=== PATIENT | female | born 1995 | race Caucasian/White ===

== ENCOUNTER 2017-10-13 14:57 | Emergency (ER) | payer OTHER ==
[2017-10-13 16:05] VITALS: BP 135/78
[2017-10-13] MEDS ORDERED: BSS OPTH.SOL* BTL ONE (16:06)
[2017-10-13] MEDS ORDERED: Fluorescein Sodium TOPICAL* 1 MG TEST ONE (16:06)
[2017-10-13] MEDS ORDERED: Tetracaine 0.5% OPTH.SOL 4 ML* 1 DROP BTL ONE (16:07)
--- NOTE | 2017-10-13 16:21 | UC ---
Eye Complaint HPI - HPI Summary HPI Summary: 22 y/o female presents to the urgent care c/o RT eye yellowish drainage with crusting since yesterday. Pt reports her contact lense ripped inside her RT eye yesterday. she removed it completely. She had itchiness after removal. This morning she woke up with RT eye redness and her eye was completely shut with crusting yellowish drainage. Pt denies eye pain, photophobia, FB sensation, fever, CRABTREE, visual impairment. - History of Current Complaint Chief Complaint: UCEye Stated Complaint: RIGHT EYE ISSUE Time Seen by Provider: 10/13/17 16:03 Hx Obtained From: Patient ?: No Onset/Duration: Gradual Onset, Lasting Days - yesterday, Still Present, Worse Since - this morning Timing: Constant Severity Initially: Mild Severity Currently: Mild Pain Intensity: 0 Pain Scale Used: 0-10 Numeric Location of Injury: Conjunctiva - RT conjunctiva with redness and yellowish discharge Character: Dull Aggravating Factor(s): Contact Lens Alleviating Factor(s): Nothing Associated Signs And Symptoms: Positive: Drainage (Purulent) - yellowish. Negative: Photophobia, Vision Impairment Bilateral, Fever, Swelling - Risk Factors Penetrating Injury Risk Factor: Negative Globe Rupture Risk Factors: Negative Acute Glaucoma Risk Factors: Negative Optic Artery Occlusion Risk Factors: Negative - Allergies/Home Medications Allergies/Adverse Reactions: Allergies Allergy/AdvReac Type Severity Reaction Status Date / Time No Known Allergies Allergy Verified 10/13/17 16:04 PMH/Surg Hx/FS Hx/Imm Hx Previously Healthy: Yes - Pt denies PMHX - Surgical History Surgical History: Yes Surgery Procedure, Year, and Place: T&A. ACL recon Left knee - Family History Known Family History: Positive: Hypertension, Diabetes - Social History Occupation: Student Lives: With Family Alcohol Use: Rare Substance Use Type: None Smoking Status (MU): Never Smoked Tobacco - Immunization History Vaccination Up to Date: Yes Review of Systems Constitutional: Negative Skin: Negative Eyes: Drainage - yellowish drainage, Eye Redness - RT eye ENT: Negative Respiratory: Negative Cardiovascular: Negative Gastrointestinal: Negative Genitourinary: Negative Motor: Negative Neurovascular: Negative Musculoskeletal: Negative Neurological: Negative Psychological: Negative Is Patient Immunocompromised?: No All Other Systems Reviewed And Are Negative: Yes Physical Exam Triage Information Reviewed: Yes Vital Signs: Initial Vital Signs Temp 98.6 F 10/13/17 16:00 Pulse 79 10/13/17 16:00 Resp 12 10/13/17 16:00 BP 135/78 10/13/17 16:00 - Additional Comments Vital Signs Reviewed: Yes General: Well appearing, well nourished female in no apparent pain distress Eyes: Positive: Conjunctiva Inflamed - Visual acuity: WNL,Visual laguna: full to confrontation.PERRLA, EOMI intact w/out limitation or complaint of pain. RT eyelashes crusting with mild tearing and yellowish drainage observed. No ciliary flush. No chemosis, No photophobia. Normal fundoscopic exam; no proptosis, exophthalmos, nystagmus. No foreign body observed with the naked eye. ENT: Positive: Normal ENT inspection, Hearing grossly normal, Pharynx normal, Nasal congestion, Nasal drainage - clear, TMs normal - B/L external ear canal clear , TM's WNL. Negative: Tonsillar swelling, Tonsillar exudate Neck: Positive: Supple, Nontender, No Lymphadenopathy Respiratory: Positive: Chest nontender, Lungs clear, Normal breath sounds, No respiratory distress Cardiovascular: Positive: RRR, No Murmur, Pulses Normal, Brisk Capillary Refill Abdomen Description: Positive: Nontender, No Organomegaly, Soft. Negative: CVA Tenderness (R), CVA Tenderness (L) Bowel Sounds: Positive: Present Musculoskeletal: Positive: Strength Intact, ROM Intact, No Edema Neurological Exam: Normal Psychological Exam: Normal Skin Exam: Normal Eye Complaint Course/Dx - Course Course Of Treatment: 22 y/o female presents to the urgent care c/o RT eye yellowish drainage with crusting since yesterday. Pt reports her contact lense ripped inside her RT eye yesterday. she removed it completely. She had itchiness after removal. This morning she woke up with RT eye redness and her eye was completely shut with crusting yellowish drainage. Pt denies eye pain, photophobia, FB sensation, fever, CRABTREE, visual impairment. Hx obtained. I need to r/o conrneal abrassion or ulcer. Topical anesthetic was instilled with good anesthesia using 1 gtt of ophth Tetraceine. Fluorescein stain of the R eye was performed w/out uptake of dye. No epithelial defect was noted. No FB, ulcer, or dendritic lesion. Upper lid was everted and no FB or lesions were noted. Slit lamp exam was performed. No fluorescein uptake or epithelial defect noted. Anterior chamber is clear w/out cells or flare. Normal saline irrigation /eye wash solutions was performed and the pt tolerated the procedure well, no adverse reaction or complication. Visual acuity WNL. Pt with bacterial conjunctivitis on examination. Pt Rx Erythromycin ophthalmic ointment for his bacterial conjunctivitis. Pt instructed how to apply medication and if symptoms do not improve, advised to return to the urgent care or f/u with PCP for further evaluation and treatment. Pt understood and agreed. - Differential Dx/Diagnosis Differential Diagnosis/HQI/PQRI: Conjunctivitis, Corneal Abrasion, Keratitis, Periorbital Cellulitis, Uveitis Provider Diagnoses: 1-RT eye bacterial conjunctivitis Discharge - Discharge Plan Condition: Stable Disposition: HOME Prescriptions: Erythromycin OPTH OINT* [Erythromycin 0.5% OPTH OINT*] 1 applic RIGHT EYE TID # 1 ophth.oint Patient Education Materials: Conjunctivitis (ED) Referrals: [facility] [place] [facility] REFERRAL [Outside] - 2 Days Ese Shell MD [Medical Doctor] - 2 Days Additional Instructions: 1-Please apply ophthalmic drops as instructed and finish the full course of treatment to avoid recurrent infection. 2- Please do not wear your contact lenses until symptoms resolve. 2-If you do not improve or if symptoms worsen please f/u with lokie driver for further evaluation and treatment
[2017-10-13] MEDS ORDERED: Tetracaine 0.5% OPTH.SOL 4 ML* 1 DROP BTL RIGHT EYE ONE (16:44)
[2017-10-13] MEDS ORDERED: Fluorescein Sodium TOPICAL* 1 MG TEST OPHTHALMIC ONE (16:44)
== END 2017-10-13 16:50 | disposition home or self-care (01) ==
LOC: UCCORT 14:57
DX: H10.31 Unspecified acute conjunctivitis, right eye (principal)
CPT/HCPCS: 99202; A9270-GY; G0463

== ENCOUNTER 2018-08-12 12:54 | Emergency (ER) | payer OTHER ==
[2018-08-12 13:34] VITALS: BP 133/70
--- NOTE | 2018-08-12 13:46 | UC ---
Complaint Female HPI - HPI Summary HPI Summary: Patient has some buring with urination yesterday, complains that her pants were ill fitting yesterday. the burnign has subsided. but wanted to make suer she was not getting an infection, period just started upon arrival to - History Of Current Complaint Chief Complaint: UCGU Stated Complaint: URINARY Time Seen by Provider: 08/12/18 13:21 Hx Obtained From: Patient Hx Last Menstrual Period: 07/12/18 ?: No Onset/Duration: Sudden Onset Timing: Lasting Minutes Severity Initially: Mild Severity Currently: Mild Pain Intensity: 4 Character: Burning Aggravating Factor(s): Urination Alleviating Factor(s): Nothing Associated Signs And Symptoms: Positive: Negative - Allergies/Home Medications Allergies/Adverse Reactions: Allergies Allergy/AdvReac Type Severity Reaction Status Date / Time No Known Allergies Allergy Verified 08/12/18 13:30 Home Medications: Home Medications NK [No Home Medications Reported] 08/12/18 [History Confirmed 08/12/18] PMH/Surg Hx/FS Hx/Imm Hx Previously Healthy: Yes - Surgical History Surgical History: Yes Surgery Procedure, Year, and Place: T&A. ACL recon Left knee - Family History Known Family History: Positive: Hypertension, Diabetes - Social History Alcohol Use: Occasionally Substance Use Type: None Smoking Status (MU): Never Smoked Tobacco - Immunization History Vaccination Up to Date: Yes Review of Systems All Other Systems Reviewed And Are Negative: Yes Constitutional: Positive: Negative Skin: Positive: Negative Eyes: Positive: Negative ENT: Positive: Negative Respiratory: Positive: Negative Cardiovascular: Positive: Negative Gastrointestinal: Positive: Negative Genitourinary: Positive: Dysuria Motor: Positive: Negative Neurovascular: Positive: Negative Musculoskeletal: Positive: Negative Neurological: Positive: Negative Psychological: Positive: Negative Is Patient Immunocompromised?: No Physical Exam Triage Information Reviewed: Yes Appearance: Well-Appearing, Well-Nourished, Pain Distress Vital Signs: Initial Vital Signs Temp 98.8 F 08/12/18 13:30 Pulse 82 08/12/18 13:30 Resp 13 08/12/18 13:30 BP 133/70 08/12/18 13:30 Pulse Ox 100 08/12/18 13:30 Vital Signs Reviewed: Yes Eye Exam: Normal ENT Exam: Normal Dental Exam: Normal Neck exam: Normal Respiratory Exam: Normal Cardiovascular Exam: Normal Abdominal Exam: Normal Musculoskeletal Exam: Normal Neurological Exam: Normal Psychological Exam: Normal Skin Exam: Normal Complaint Female Dx - Course Course Of Treatment: hx obtained, exam perfromed ,meds reviewed, UA and culture obtained, will call if needs to be treated - Differential Dx/Diagnosis Provider Diagnoses: dysuria. hematuria Discharge - Sign-Out/Discharge Documenting (check all that apply): Patient Departure All imaging exams completed and their final reports reviewed: No Studies - Discharge Plan Condition: Stable Disposition: HOME Patient Education Materials: Dysuria (ED) Referrals: No Primary Care Phys,NOPCP [Primary Care Provider] - Additional Instructions: 1. increase fluid intake 2. Urine culture was sent and we will notify you if treatment is needed. - Billing Disposition and Condition Condition: STABLE Disposition: Home
== END 2018-08-12 13:50 | disposition home or self-care (01) ==
LOC: UCCORT 12:54
DX: R30.0 Dysuria (principal); R31.9 Hematuria, unspecified
CPT/HCPCS: 81003; 87086; 99211; G0463